=== PATIENT | female | born 1955 | race Caucasian/White ===

== ENCOUNTER 2018-10-16 12:05 | Day surgery (SDC) | payer OTHER ==
[~2018-10-16] VITALS: Ht 160 cm; Wt 54.2 kg
[2018-10-16] MEDS ORDERED: OMEPRAZOLE MAGN20 MG (13:21)
[2018-10-16] MEDS ORDERED: Vitamin C100 M1 (13:21)
== END 2018-10-16 15:37 | disposition home or self-care (01) ==
LOC: ORSCSDS 12:05
PROVIDERS: Student in an Organized Health Care Education/Training Program
PROC: 0DBN8ZX Excision of Sigmoid Colon, Via Natural or Artificial Opening Endoscopic, Diagnostic (ICD-10-PCS; principal; 2018-10-16 13:30)
PROC: 0DBL8ZX Excision of Transverse Colon, Via Natural or Artificial Opening Endoscopic, Diagnostic (ICD-10-PCS; principal; 2018-10-16 13:30)
DX: R19.7 Diarrhea, unspecified (principal); K52.9 Noninfective gastroenteritis and colitis, unspecified; D12.3 Benign neoplasm of transverse colon; D12.5 Benign neoplasm of sigmoid colon; K57.30 Diverticulosis of large intestine without perforation or abscess without bleeding; K64.8 Other hemorrhoids; Z87.891 Personal history of nicotine dependence; Z79.899 Other long term (current) drug therapy
CPT/HCPCS: 88305; J2704; J7120

== ENCOUNTER → 2019-08-13 | Outpatient (CLI) | payer OTHER ==
[~2019-08-13] MED LIST: OMEPRAZOLE MAGN20 MG; Vitamin C100 M1
== END | disposition home or self-care (01) ==
LOC: PLD 12:02 → LAB SHORT 12:02
DX: D22.5 Melanocytic nevi of trunk (principal); L81.8 Other specified disorders of pigmentation
CPT/HCPCS: 88305

== ENCOUNTER 2022-03-08 10:20 | Day surgery (SDC) | payer OTHER ==
[~2022-03-08] VITALS: Ht 162.6 cm; Wt 53.9 kg
== END 2022-03-08 12:50 | disposition home or self-care (01) ==
LOC: ORSCSDS 10:20
PROVIDERS: Student in an Organized Health Care Education/Training Program
PROC: 0DJD8ZZ Inspection of Lower Intestinal Tract, Via Natural or Artificial Opening Endoscopic (ICD-10-PCS; principal; 2022-03-08 11:45)
DX: Z12.11 Encounter for screening for malignant neoplasm of colon (principal); Z86.010 Personal history of colon polyps; K57.30 Diverticulosis of large intestine without perforation or abscess without bleeding; K64.8 Other hemorrhoids; K62.89 Other specified diseases of anus and rectum
CPT/HCPCS: J0330; J0461; J2405; J2704; J7120